=== PATIENT | female | born 1990 | race Caucasian/White ===

== ENCOUNTER 2020-02-05 22:38 | Emergency (ER) | payer OTHER, SELFPAY ==
[2020-02-05 22:43] VITALS: BP 137/78; PULSE 69; RESP 18; TEMP 36.5; O2SAT 100
--- NOTE | 2020-02-05 22:55 | ED.DENTAL ---
HPI - Dental/Oral General Chief complaint: Dental/Oral Stated complaint: bleeding from tooth extraction Time Seen by Provider: 02/05/20 22:52 Source: patient and RN notes reviewed Mode of arrival: other Limitations: no limitations History of Present Illness HPI Narrative: Pt is a 29 y/o female who presents to the ED with c/o dental pain on molar 19 with bleeding that began two days ago (02/03/20). Pt had a tooth extraction 2 days ago (02/03/20) at the [facility]. Pt states that the dentist left a piece of tooth from the extraction and she tried to get the left over tooth with a pair of tweezers. She notes that her jaw has been bleeding. Pt reports a similar episode and she notes that she was able to pull out the left over tooth during her last episode. Pt reports cough and a subjective fever for the past 10 days. She states that she was screened for COVID, but was not tested. Pt was told to self-quarantine for 14 days yesterday. Pt able tolerate foods. Pt was not prescribed an abx. Pt denies dyspnea, diarrhea, and vomiting. MD Complaint: tooth pain (with bleeding) Location: Tooth # (molar 19) Onset (ago): day(s) (2) Duration: constant Associated symptoms: other (cough, subjective fever) Related Data Allergies Allergy/AdvReac Type Severity Reaction Status Date / Time shellfish derived Allergy Unknown Unverified 08/17/18 13:11 Review of Systems Review of Systems: Narrative: CONSTITUTIONAL: Reports subjective fever. ENT: Reports dental pain with bleeding. RESPIRATORY: Reports cough. Denies dyspnea. GASTROINTESTINAL: Denies diarrhea and vomiting. All systems reviewed & are unremarkable except as noted in HPI and below PMFSH Past Medical History Medical History (Updated 02/05/20 @ 23:09 by Yue Dawn) Anxiety Depression induced hypertension UTI (urinary tract infection) Surgical History Surgical History (Updated 02/05/20 @ 23:09 by Yue Dawn) H/O tooth extraction Social History Social History (Updated 02/05/20 @ 23:09 by Yue Dawn) Smoking status: Never smoker Exam Narrative: Exam Narrative: CONSTITUTIONAL: Awake, alert, conversant HEAD: Normocephalic, atraumatic. EYES: EOMI, conjunctiva clear ENT: Nares patent. Mucous membranes moist. Tooth extraction molar 19 with no active bleeding and no abscess. No trismus. NECK: Full range of motion RESPIRATORY: No respiratory distress, speaking in full sentences, no tachypnea, no hypoxemia HEART: Regular rate ABDOMEN: Non distended, non tender EXTREMITIES: Normal range of motion. No edema SKIN: Warm, dry, no rash. NEUROLOGIC: No focal deficits. Alert and oriented x3. Course Course Emergency Course: Patient presented to the ED for evaluation of dental pain at side of prior dental extraction site. Site is normal, no active bleeding. No trismus. No evidence of abscess. No facial swelling, erythema, or edema. No signs of active infection. From respiratory standpoint, patient is in no distress, vital signs stable. No signs of severe COVID 19 infection at this point, pt does not warrant state testing, and I do not feel symptoms severe enough to warrant outpatient testing either. Patient then discharged home,advised to see dentist, was prescribed 3 day Rx of pain medication. Advised could use packing in that area with gauze as well to help with pain. Pt then discharged home. Vital Signs Vital signs: Vital Signs Temperature 36.5 C 02/05/20 22:43 Pulse Rate 69 02/05/20 22:43 Respiratory Rate 18 02/05/20 22:43 Blood Pressure 137/78 02/05/20 22:43 Pulse Oximetry 100 02/05/20 22:43 Temperature 36.5 C 02/05/20 22:43 Pulse Rate 69 02/05/20 22:43 Respiratory Rate 18 02/05/20 22:43 Blood Pressure 137/78 02/05/20 22:43 Pulse Oximetry 100 02/05/20 22:43 Discharge Plan Discharge Clinical Impression: Toothache Patient Disposition: Home, Self-Care Condition: Stable Instructions: Toothache (ED)
[2020-02-05 23:26] VITALS: BP 132/88; PULSE 88; RESP 18; O2SAT 98
== END 2020-02-05 23:27 | disposition home or self-care (01) ==
PROVIDERS: Emergency Provider Emergency Medicine; PCP Nurse Practitioner
DX: K08.89 Other specified disorders of teeth and supporting structures (principal); Z87.440 Personal history of urinary (tract) infections
CPT/HCPCS: 99283